=== PATIENT | male | born 1950 | race Caucasian/White ===

== ENCOUNTER 2019-10-05 13:17 | Outpatient (CLI) | payer MEDICARE ==
[~2019-10-05 13:17] MED LIST: COU5T PO; DILT-91 PO; LEVO500T89 PO; METO-292 PO; MORP30TA PO; MORP60TA77 PO; NICO-687 TD; OMEP-84 PO
== END 2019-10-05 23:59 | disposition home or self-care (01) ==
LOC: RAD 13:17
PROVIDERS: ATTEND Obstetrics & Gynecology
DX: R00.1 Bradycardia, unspecified (principal); F11.20 Opioid dependence, uncomplicated
CPT/HCPCS: 93005

== ENCOUNTER 2022-01-23 06:21 | Inpatient (IN) | payer MEDICARE ==
[~2022-01-23] VITALS: Ht 182.9 cm; Wt 60.0 kg
[2022-01-23] VITALS (18 sets, daily range): BP systolic 106–159; BP diastolic 56–106
[~2022-01-23 06:21] MED LIST changes: +ALPR0.255 PO; +AMIO200T61 PO; -COU5T PO; -DILT-91 PO; -LEVO500T89 PO; +METH5TAB PO; -METO-292 PO; -MORP30TA PO; -MORP60TA77 PO; -NICO-687 TD; -OMEP-84 PO; +OMEP20CA16 PO; +TEMA30CA PO; +TRAZ-256 PO; +VENL75CA61 PO; +WARF3TAB56 PO
[2022-01-23] MEDS ORDERED: normal saline 1000ML IV soln IV ONE (06:25)
[2022-01-23] MEDS ORDERED: famotidine/PF 10 mg/ml inj IV ONE (06:25)
[2022-01-23] MEDS ORDERED: pantoprazole 40MG/NS 100ML BAG 100 ML IV ONE ×2 (06:25)
--- NOTE | 2022-01-23 06:29 | NUR ---
NRB REMOVED, PLACED ON 6L NC. XRAY AT BEDSIDE.
--- NOTE | 2022-01-23 06:42 | NUR ---
PT DID NOT TOLERATE NC, DESAT TO 70S. NRB PLACED BACK ON PT AT 15L, MD AT BEDSIDE.
[2022-01-23 07:08] LABS: BASOPHILS % (AUTO) 0.1 % (0-1); EOSINOPHILS % (AUTO) 0 % (0-6); HEMATOCRIT 22.5 % (42.0-52.0); HEMOGLOBIN 7.2 g/dl (14.0-17.9); LYMPHOCYTES # (AUTO) 0.3 X10'3 (1.1-4.8); LYMPHOCYTES % (AUTO) 1.1 % (21-51); MEAN CORPUSCULAR HEMOGLOBIN 28.3 PG (27.0-31.0); MEAN CORPUSCULAR HGB CONC 31.8 g/dL (33.0-36.5); MEAN PLATELET VOLUME 7.7 FL (7.4-10.4); MONOCYTES # (AUTO) 0.4 X10'3 (0-0.9); MONOCYTES % (AUTO) 1.7 % (2-12); NEUTROPHILS # (AUTO) 22.6 X10'3 (1.8-7.7); NEUTROPHILS % (AUTO) 97.1 % (42-75); PLATELET COUNT 91 X10'3 (140-440); RED BLOOD COUNT 2.53 X10'6 (4.70-6.10); RED CELL DISTRIBUTION WIDTH 21.3 % (11.5-14.5); WHITE BLOOD COUNT 23.3 X10'3 (4.5-11.0)
[2022-01-23] MEDS: pantoprazole 40MG/NS 100ML BAG 100 ML IV SCH ×4 (07:17→21:15)
[2022-01-23 07:19] LABS: APTT 29 SECONDS (22-32)
[2022-01-23 07:21] LABS: ALANINE AMINOTRANSFERASE 67 U/L (12-78); ALBUMIN 2.2 G/DL (3.4-5.0); ALBUMIN/GLOBULIN RATIO 0.7 (1.1-1.5); ALKALINE PHOSPHATASE 96 IU/L (46-116); ANION GAP 8 (8-16); ASPARTATE AMINO TRANSFERASE 24 U/L (10-37); BLOOD UREA NITROGEN 46 MG/DL (7-18); BUN/CREATININE RATIO 47.9 (5.4-32.0); CALCIUM 7.7 MG/DL (8.5-10.1); CHLORIDE 104 MMOL/L (99-107); CREATININE 0.96 MG/DL (0.60-1.10); GLUCOSE 248 MG/DL (70-104); POTASSIUM 3.7 MMOL/L (3.5-5.1); SODIUM 143 MMOL/L (135-145); TOTAL CARBON DIOXIDE 30.9 MMOL/L (24-32); TOTAL PROTEIN 5.4 G/DL (6.4-8.2); eGFR 78 ML/MIN
[2022-01-23 07:29] LABS: ANISOCYTOSIS 3+; ELLIPTOCYTES FEW; PLATELET ESTIMATE DECREASED; SCHISTOCYTES FEW
--- NOTE | 2022-01-23 07:30 | NUR ---
dr bills at bedside ,vitals s table ,checked patient bottom by the provider .
[2022-01-23] MEDS ORDERED: phytonadione inj. 10 MG in normal saline 100ml IV soln 100 ML IV ONE (07:35)
[2022-01-23] MEDS ORDERED: CefTRIAXone 2gm/NS 100ml IVPB 100 ML IV ONE (07:35)
[2022-01-23] MEDS ORDERED: vancomycin/NS 1 GM ADD-VANTAGE 250 ML IV ONE (07:35)
[2022-01-23 07:57] LABS: ABG BASE EXCESS 2.5 mmol/L (-2.0-2.0); ABG HCO3 26.3 mmol/L (22.0-26.0); ABG OXYGEN SATURATION 95.1 % (94-97); ABG PCO2 (T) 36.4 mmHg (35.0-48.0); ABG PO2 (T) 83.1 mmHg (75.0-100.0); ALLEN'S TEST POSITIVE; FCOHb 0.8 % (0.0-3.9); FLOW 15 L/min; FMetHb 0.1 % (0.0-1.5); FO2Hb 94.2 % (94-97); TOTAL HEMOGLOBIN 6.8 G/dl (14.0-18.0)
[2022-01-23] MEDS ORDERED: sod chloride 0.9% 10ml flush syringe IV ONE (08:00)
[2022-01-23] MEDS ORDERED: etomidate 2mg/ml inj. ONE (08:00)
[2022-01-23] MEDS ORDERED: sodium bicarbonate (8.4%) 1 mEq/ml syringe ONE (08:00)
[2022-01-23] MEDS ORDERED: rocuronium 10mg/ml inj IV ONE ×2 (08:00→18:50)
[2022-01-23] MEDS ORDERED: linezolid 600mg/300ml PREMIX 300 ML IV ONE (08:05)
[2022-01-23] MEDS ORDERED: potassium CL 10mEq/100ml bag 100 ML IV PRN (08:10)
[2022-01-23] MEDS ORDERED: LIDOcaine 2% 10ml TOPICAL JELLY (Urojet) TP ONE (08:10)
[2022-01-23] MEDS ORDERED: ipratropium/albuterol 3ml nebule NEB PRN (08:10)
[2022-01-23] MEDS ORDERED: sodium phosphate inj. 15 MMOL in dextrose 5%-water 250 ML IV PRN (08:10)
[2022-01-23] MEDS ORDERED: potassium Cl 20 mEq SR tablet PO PRN ×2 (08:10)
[2022-01-23] MEDS ORDERED: sodium phosphate inj. 30 MMOL in dextrose 5%-water 250 ML IV PRN (08:10)
[2022-01-23] MEDS ORDERED: magnesium 2GM in 50ml NS 50 ML IV PRN (08:10)
[2022-01-23] MEDS ORDERED: ondansetron/PF 4mg/2ml inj IV PRN (08:10)
[2022-01-23] MEDS ORDERED: acetaminophen 325mg tablet PO PRN (08:10)
[2022-01-23] MEDS ORDERED: acetaminophen 650mg rectal suppository RC PRN (08:10)
[2022-01-23] MEDS ORDERED: Neutra Phos packet PO PRN (08:10)
[2022-01-23 09:21] LABS: LDL CHOLESTEROL 70 MG/DL (50-100)
--- NOTE | 2022-01-23 09:22 | NUR ---
first unit plt started at 915, witnesed by cecelia keys.
--- NOTE | 2022-01-23 09:39 | NUR ---
pt agreeable to intubation for endoscopy procedure, dr. zamorano at bedside to explain procedure. pt verbalized understanding and agreed.
[2022-01-23] MEDS ORDERED: ALPRAZolam 0.25mg tablet PO ONE (09:40)
[2022-01-23] MEDS ORDERED: WARF-55 PO (11:04)
--- NOTE | 2022-01-23 11:53 | NUR ---
SPOKE TO DR MEDRANO AND INFORMED THE MD THAT PT SPO2 IS DROPPING DOWN TO 89-90 ON 15 L NRB ,TELE ORDER FOR BIPAP WAS PASS ALONG TO RT ,BUT PT REFUSED THE BI PAP.PT IS REQUESTING FOR ATIVIAN FOR ANXITEY , PER DR MEDRANO NEED TO KNOW HE MAY FOR REFUSING THE BIPAP ANS PT IS LIMITED ON CODE STATUS .TEL ORDER FOR ATIVIAN 1 MG IV Q 4 HR PRN .
--- NOTE | 2022-01-23 12:00 | NUR ---
HAVE NOT SEEN THE ORDER FOR NG TUBE I HAD ANOTHER CRITICAL ICU PT ,CHARGE NURSE ROE AND MAGDALENE WERE HELPING ME WITH THE PT .NOTIFIED THE ICU NURSE LUIS ALFREDO BY BRENNEN ZAZUETA.
[2022-01-23] MEDS: LORazepam 2 mg/ml vial IV PRN ×2 (12:16→20:57)
[2022-01-23] MEDS: cefepime 1GM/NS ADD-VANTAGE 100 ML IV SCH ×2 (16:00→23:01)
[2022-01-23] MEDS ORDERED: pantoprazole 40MG/NS 100ML BAG 100 ML IV SCH (16:00)
[2022-01-23 17:05] LABS: BASOPHILS % (AUTO) 0.1 % (0-1); EOSINOPHILS % (AUTO) 0 % (0-6); LYMPHOCYTES # (AUTO) 0.3 X10'3 (1.1-4.8); LYMPHOCYTES % (AUTO) 1.1 % (21-51); MEAN CORPUSCULAR HGB CONC 31.6 g/dL (33.0-36.5); MEAN CORPUSCULAR VOLUME 88.5 FL (78-98); MEAN PLATELET VOLUME 7.6 FL (7.4-10.4); MONOCYTES # (AUTO) 0.7 X10'3 (0-0.9); MONOCYTES % (AUTO) 2.6 % (2-12); NEUTROPHILS # (AUTO) 24.1 X10'3 (1.8-7.7); NEUTROPHILS % (AUTO) 96.2 % (42-75); PLATELET COUNT 66 X10'3 (140-440); RED BLOOD COUNT 2.44 X10'6 (4.70-6.10); RED CELL DISTRIBUTION WIDTH 20.8 % (11.5-14.5)
[2022-01-23 17:16] LABS: HEMATOCRIT 21.6 % (42.0-52.0); HEMOGLOBIN 6.8 g/dl (14.0-17.9); WHITE BLOOD COUNT 25.1 X10'3 (4.5-11.0)
[2022-01-23 17:39] LABS: PLATELET ESTIMATE DECREASED; TOTAL CELLS COUNTED 100
[2022-01-23 17:40] LABS: ANISOCYTOSIS 3+; ELLIPTOCYTES FEW; SCHISTOCYTES FEW
[2022-01-23] MEDS ORDERED: succinylcholine 20mg/ml inj IV ONE (18:37)
[2022-01-23] MEDS ORDERED: NORepinephrine 8mg/ 250ml NS 250 ML IV SCH (18:40)
[2022-01-23] MEDS ORDERED: NORepinephrine 8mg/ 250ml NS 250 ML IV ONE (18:40)
[2022-01-23] MEDS ORDERED: midazolam 1 mg/ML 2ml injection IV ONE (18:42)
[2022-01-23] MEDS ORDERED: MIDAZolam 5mg/ml 2ml vial IV ONE (18:45)
[2022-01-23] MEDS ORDERED: etomidate 2mg/ml inj. IV ONE (18:45)
[2022-01-23] MEDS ORDERED: midazolam 1 mg/ML 2ml injection ONE ×3 (18:46→18:48)
[2022-01-23] MEDS ORDERED: midazolam 100mg in NS 100ml 100 ML IV PRN (19:00)
[2022-01-23 19:30] LABS: ABG BASE EXCESS -1.2 mmol/L (-2.0-2.0); ABG HCO3 25.1 mmol/L (22.0-26.0); ABG OXYGEN SATURATION 91.6 % (94-97); ABG PCO2 (T) 49.3 mmHg (35.0-48.0); ABG PO2 (T) 70.4 mmHg (75.0-100.0); ALLEN'S TEST POSITIVE; FCOHb 0.3 % (0.0-3.9); FMetHb 0.4 % (0.0-1.5); PATIENT TEMPERATURE 36.7; PEEP 5 cm H2O; RESPIRATORY RATE 16 b/min; TIDAL VOLUME 400 mL; TOTAL HEMOGLOBIN 9.8 G/dl (14.0-18.0)
[2022-01-23] MEDS: albuterol 2.5 MG/3 ML nebule NEB SCH ×2 (19:33→23:03)
[2022-01-23] MEDS ORDERED: fentaNYL/PF 50MCG/1 ML 2ML syringe IV PRN (20:30)
[2022-01-23] MEDS ORDERED: propofol 1000mg/100ml bottle 100 ML IV ONE (20:54)
[2022-01-23] MEDS: sennosides/docusate sodium tablet PO SCH (20:59)
[2022-01-23] MEDS: dexmedetomidine/D5W 100mL 100 ML IV PRN ×3 (20:59→23:01)
[2022-01-23] MEDS: linezolid 600mg/300ml PREMIX 300 ML IV SCH (21:00)
[2022-01-23] MEDS: mineral oil/petrolatum ophthal oint EACHEYE SCH (21:01)
[2022-01-23] MEDS: normal saline 1000ml 1,000 ML IV SCH ×2 (21:04→21:16)
[2022-01-23] MEDS: propofol 1000mg/100ml bottle 100 ML IV SCH ×2 (21:10→23:02)
[2022-01-23] MEDS: fentaNYL/PF 50MCG/1 ML 2ML syringe IV PRN (23:05)
[2022-01-24] VITALS (43 sets, daily range): BP systolic 105–132; BP diastolic 46–63
[2022-01-24] MEDS: pantoprazole 40MG/NS 100ML BAG 100 ML IV SCH ×5 (01:00→20:34)
[2022-01-24] MEDS: albuterol 2.5 MG/3 ML nebule NEB SCH ×6 (02:31→23:27)
[2022-01-24 02:45] LABS: ABG BASE EXCESS -2.4 mmol/L (-2.0-2.0); ABG HCO3 21.2 mmol/L (22.0-26.0); ABG OXYGEN SATURATION 93.3 % (94-97); ABG PCO2 (T) 31.6 mmHg (35.0-48.0); ABG PO2 (T) 68.5 mmHg (75.0-100.0); ALLEN'S TEST POSITIVE; FCOHb 0.3 % (0.0-3.9); FMetHb 0.5 % (0.0-1.5); FO2Hb 92.6 % (94-97); PEEP 5 cm H2O; TOTAL HEMOGLOBIN 7.7 G/dl (14.0-18.0)
[2022-01-24 03:21] LABS: BASOPHILS % (AUTO) 0.1 % (0-1); EOSINOPHILS % (AUTO) 0.1 % (0-6); LYMPHOCYTES # (AUTO) 0.5 X10'3 (1.1-4.8); LYMPHOCYTES % (AUTO) 3.6 % (21-51); MEAN CORPUSCULAR HEMOGLOBIN 28.3 PG (27.0-31.0); MEAN CORPUSCULAR HGB CONC 32.3 g/dL (33.0-36.5); MEAN CORPUSCULAR VOLUME 87.5 FL (78-98); MEAN PLATELET VOLUME 8.1 FL (7.4-10.4); MONOCYTES # (AUTO) 0.3 X10'3 (0-0.9); MONOCYTES % (AUTO) 2.3 % (2-12); NEUTROPHILS # (AUTO) 13.6 X10'3 (1.8-7.7); NEUTROPHILS % (AUTO) 93.9 % (42-75); RED BLOOD COUNT 2.47 X10'6 (4.70-6.10); WHITE BLOOD COUNT 14.5 X10'3 (4.5-11.0)
[2022-01-24 03:34] LABS: HEMATOCRIT 21.6 % (42.0-52.0); PLATELET COUNT 39 X10'3 (140-440)
[2022-01-24 03:35] LABS: ALANINE AMINOTRANSFERASE 46 U/L (12-78); ALBUMIN 1.6 G/DL (3.4-5.0); ALBUMIN/GLOBULIN RATIO 0.7 (1.1-1.5); ALKALINE PHOSPHATASE 63 IU/L (46-116); ANION GAP 8 (8-16); ASPARTATE AMINO TRANSFERASE 22 U/L (10-37); BILIRUBIN,TOTAL 0.7 MG/DL (0.1-1.0); BLOOD UREA NITROGEN 43 MG/DL (7-18); CALCIUM 6.8 MG/DL (8.5-10.1); CHLORIDE 110 MMOL/L (99-107); CREATININE 0.86 MG/DL (0.60-1.10); GLUCOSE 139 MG/DL (70-104); PHOSPHORUS 2.7 MG/DL (2.3-4.5); SODIUM 144 MMOL/L (135-145); TOTAL CARBON DIOXIDE 26.1 MMOL/L (24-32); TOTAL PROTEIN 3.8 G/DL (6.4-8.2); eGFR 88 ML/MIN
[2022-01-24] MEDS: fentaNYL/PF 50MCG/1 ML 2ML syringe IV PRN ×3 (03:35→22:10)
[2022-01-24] MEDS: propofol 1000mg/100ml bottle 100 ML IV SCH ×4 (03:39→20:36)
[2022-01-24] MEDS: K and/or MAG REPLACEMENT MC SCH (08:00)
[2022-01-24] MEDS: cefepime 1GM/NS ADD-VANTAGE 100 ML IV SCH ×2 (08:45→15:49)
[2022-01-24] MEDS: linezolid 600mg/300ml PREMIX 300 ML IV SCH ×2 (08:45→20:28)
[2022-01-24] MEDS: dexmedetomidine/D5W 100mL 100 ML IV PRN ×3 (09:23→20:33)
[2022-01-24] MEDS: normal saline 1000ml 1,000 ML IV SCH (10:50)
[2022-01-24 11:13] LABS: BASOPHILS % (AUTO) 0.1 % (0-1); EOSINOPHILS # (AUTO) 0.1 X10'3 (0-0.9); EOSINOPHILS % (AUTO) 0.6 % (0-6); HEMATOCRIT 25.1 % (42.0-52.0); HEMOGLOBIN 8.2 g/dl (14.0-17.9); LYMPHOCYTES # (AUTO) 0.5 X10'3 (1.1-4.8); LYMPHOCYTES % (AUTO) 4.4 % (21-51); MEAN CORPUSCULAR HEMOGLOBIN 28.9 PG (27.0-31.0); MEAN CORPUSCULAR HGB CONC 32.8 g/dL (33.0-36.5); MEAN PLATELET VOLUME 8.3 FL (7.4-10.4); MONOCYTES # (AUTO) 0.2 X10'3 (0-0.9); MONOCYTES % (AUTO) 1.6 % (2-12); NEUTROPHILS # (AUTO) 11.5 X10'3 (1.8-7.7); NEUTROPHILS % (AUTO) 93.3 % (42-75); PLATELET COUNT 51 X10'3 (140-440); RED BLOOD COUNT 2.85 X10'6 (4.70-6.10); RED CELL DISTRIBUTION WIDTH 17.9 % (11.5-14.5); WHITE BLOOD COUNT 12.3 X10'3 (4.5-11.0)
[2022-01-24 11:21] LABS: ALANINE AMINOTRANSFERASE 49 U/L (12-78); ALBUMIN 1.7 G/DL (3.4-5.0); ALBUMIN/GLOBULIN RATIO 0.7 (1.1-1.5); ALKALINE PHOSPHATASE 59 IU/L (46-116); ANION GAP 9 (8-16); ASPARTATE AMINO TRANSFERASE 24 U/L (10-37); BILIRUBIN,TOTAL 0.9 MG/DL (0.1-1.0); BLOOD UREA NITROGEN 38 MG/DL (7-18); BUN/CREATININE RATIO 46.9 (5.4-32.0); CALCIUM 6.7 MG/DL (8.5-10.1); CHLORIDE 111 MMOL/L (99-107); CREATININE 0.81 MG/DL (0.60-1.10); GLUCOSE 119 MG/DL (70-104); POTASSIUM 3.8 MMOL/L (3.5-5.1); SODIUM 145 MMOL/L (135-145); TOTAL CARBON DIOXIDE 25.5 MMOL/L (24-32); eGFR > 90 ML/MIN
--- NOTE | 2022-01-24 16:05 | NUR ---
Malnutrition consult: Pt admitted w/ GI bleed and PNA per EMR. Pt is currently intubated and receiving propofol per RN at 19.8 ml/hr providing 523 kcal/day. Per RN malnutrition screen pt reports losing 14-23 lb and a poor appetite. Pt's current bedscale wt 60kg per RN. Discussed pt wt and diet hx w/ RD at [facility] who states pt's scaled wt was 57kg 01/10/22, 58.5 kg 01/12/22, and 59 kg 01/20/22. Pt is currently NPO, though per RD at [facility] pt was eating roughly 50% Regular mechanical soft chopped meals and drinking the majority of Ensure Enlive TIDWM. Pt has no edema per documentation, though per RN pt has edema to both arms along with severe muscle weakness. Pt lacks minimum two malnutrition criteria at this time. Noted pt is currently on Zyvox, though will not provide education until pt is appropriate following extubation. LBM 01/23, w/ bloody stool and receiving routine Senna per RN at [facility]. Will continue to follow for nutrition intervention needs this admit. Recs: 1. IF TF while propofol at 19.8 ml/hr (523 kcal/day), continuous Vital HP via NGT with 53 mL/hr goal rate to provide 1272 mL total volume/day, 1272 kcal, 111 g protein, and 1063 mL water 2. Monitor Propofol rate and need to adjust TF recs 3. IF TF, additional 120 mL water flush Q4H; monitor serum Na 4. IF TF, prealbumin q Thursday/; daily scaled weights 5. Routine bowel care 6. Advance to Regular mechanical soft, chop all diet as medically indicated following extubation; needs assistance w/ meals per last admit 7. Monitor need for ONS w/ diet advancement; previously receiving Ensure Enlive TID at [facility] Addendum: 01/24/22 at 1605 by Selena Bazzi - Motorcycle Repairer RD Amended: Links added. Addendum: 01/24/22 at [address] I have reviewed and agree with note by Motorcycle RepairerJulissa Nelson RD
[2022-01-24] MEDS ORDERED: fentaNYL/PF 50MCG/1 ML 2ML syringe ONE (16:10)
[2022-01-24] MEDS ORDERED: MIDAZolam 1 MG/ML 5ML VIAL ONE (16:10)
[2022-01-24] MEDS: sennosides/docusate sodium tablet PO SCH (20:36)
[2022-01-25] VITALS (29 sets, daily range): BP systolic 85–132; BP diastolic 45–98
[2022-01-25] MEDS: dexmedetomidine/D5W 100mL 100 ML IV PRN ×6 (00:11→23:03)
[2022-01-25] MEDS: cefepime 1GM/NS ADD-VANTAGE 100 ML IV SCH ×3 (00:12→16:30)
[2022-01-25] MEDS: pantoprazole 40MG/NS 100ML BAG 100 ML IV SCH ×5 (00:12→14:42)
[2022-01-25] MEDS: propofol 1000mg/100ml bottle 100 ML IV SCH ×6 (00:12→23:03)
[2022-01-25] MEDS: normal saline 1000ml 1,000 ML IV SCH ×2 (00:24→07:59)
[2022-01-25] MEDS: mineral oil/petrolatum ophthal oint EACHEYE SCH ×4 (02:00→19:45)
[2022-01-25 02:27] LABS: BASOPHILS % (AUTO) 0 % (0-1); EOSINOPHILS # (AUTO) 0.2 X10'3 (0-0.9); EOSINOPHILS % (AUTO) 1.6 % (0-6); HEMATOCRIT 26.2 % (42.0-52.0); HEMOGLOBIN 8.6 g/dl (14.0-17.9); LYMPHOCYTES # (AUTO) 0.5 X10'3 (1.1-4.8); LYMPHOCYTES % (AUTO) 4.3 % (21-51); MEAN CORPUSCULAR HEMOGLOBIN 28.9 PG (27.0-31.0); MEAN CORPUSCULAR HGB CONC 32.6 g/dL (33.0-36.5); MEAN CORPUSCULAR VOLUME 88.6 FL (78-98); MEAN PLATELET VOLUME 7.9 FL (7.4-10.4); MONOCYTES # (AUTO) 0.2 X10'3 (0-0.9); MONOCYTES % (AUTO) 1.5 % (2-12); NEUTROPHILS # (AUTO) 11.3 X10'3 (1.8-7.7); NEUTROPHILS % (AUTO) 92.6 % (42-75); RED BLOOD COUNT 2.96 X10'6 (4.70-6.10); RED CELL DISTRIBUTION WIDTH 18.2 % (11.5-14.5); WHITE BLOOD COUNT 12.2 X10'3 (4.5-11.0)
[2022-01-25 02:33] LABS: PLATELET COUNT 40 X10'3 (140-440)
[2022-01-25 02:40] LABS: ALANINE AMINOTRANSFERASE 44 U/L (12-78); ALBUMIN 1.6 G/DL (3.4-5.0); ALBUMIN/GLOBULIN RATIO 0.7 (1.1-1.5); ALKALINE PHOSPHATASE 60 IU/L (46-116); ANION GAP 8 (8-16); ASPARTATE AMINO TRANSFERASE 23 U/L (10-37); BILIRUBIN,TOTAL 1.4 MG/DL (0.1-1.0); BLOOD UREA NITROGEN 28 MG/DL (7-18); BUN/CREATININE RATIO 38.9 (5.4-32.0); CALCIUM 6.7 MG/DL (8.5-10.1); CHLORIDE 110 MMOL/L (99-107); CREATININE 0.72 MG/DL (0.60-1.10); GLUCOSE 89 MG/DL (70-104); MAGNESIUM 1.8 MG/DL (1.5-2.4); PHOSPHORUS 2.4 MG/DL (2.3-4.5); POTASSIUM 3.5 MMOL/L (3.5-5.1); SODIUM 142 MMOL/L (135-145); TOTAL CARBON DIOXIDE 24.5 MMOL/L (24-32); eGFR > 90 ML/MIN
[2022-01-25] MEDS: albuterol 2.5 MG/3 ML nebule NEB SCH ×6 (03:15→23:24)
[2022-01-25 04:23] LABS: ABG BASE EXCESS -4.2 mmol/L (-2.0-2.0); ABG HCO3 19.6 mmol/L (22.0-26.0); ABG OXYGEN SATURATION 94.4 % (94-97); ABG PCO2 (T) 31.4 mmHg (35.0-48.0); ABG PO2 (T) 74.1 mmHg (75.0-100.0); ALLEN'S TEST POSITIVE; FMetHb 0.3 % (0.0-1.5); FO2Hb 94.1 % (94-97); PATIENT TEMPERATURE 37.2; PEEP 5 cm H2O; RESPIRATORY RATE 16 b/min; TOTAL HEMOGLOBIN 9.5 G/dl (14.0-18.0)
[2022-01-25] MEDS: fentaNYL/PF 50MCG/1 ML 2ML syringe IV PRN (04:30)
[2022-01-25] MEDS ORDERED: dextrose 50%-water 50ml dispensing syringe IV ONE ×2 (07:55→08:10)
[2022-01-25] MEDS: K and/or MAG REPLACEMENT MC SCH (08:00)
[2022-01-25] MEDS ORDERED: bisacodyl 10mg suppository rectal RC PRN (08:10)
[2022-01-25] MEDS: linezolid 600mg/300ml PREMIX 300 ML IV SCH ×2 (08:12→19:43)
--- NOTE | 2022-01-25 10:41 | NUR ---
TF consult: Pt remains intubated. See TF recommendations below. Recommendations: 1. Given propofol at 19.8 mL/hr (523 kcal/day), continuous Vital HP via NGT with 53 mL/hr goal rate to provide 1272 mL total volume/day, 1272 kcal, 111 g protein, and 1063 mL water 2. Monitor Propofol rate and need to adjust TF recs 3. Additional 120 mL water flush Q4H; monitor serum Na 4. Prealbumin q Thursday/ 5. Daily scaled weights 6. Bowel care per rx 7. Advance to regular mechanical soft chop all diet (SB6) as medically indicated following extubation; needs assistance w/ meals per last admit 8. Monitor need for ONS with diet advancement; previously receiving Ensure Enlive TID at [facility] with good acceptance per [facility] [facility] 9. Low tyramine nutrition therapy education once stable following extubation if indicated Addendum: 01/25/22 at [address] Amended: Links added.
[2022-01-25] MEDS: morphine/NS 100mg/100ml bag 100 ML IV SCH ×2 (11:00→16:53)
[2022-01-25] MEDS ORDERED: calcium chloride 100 MG/1 ML inj IV ONE (11:40)
[2022-01-25] MEDS ORDERED: furosemide 40mg/4ml inj IV ONE (14:20)
[2022-01-25] MEDS ORDERED: amiodarone 150mg/dext, iso-os 100 ML IV ONE ×2 (16:37→17:00)
[2022-01-25] MEDS ORDERED: LORazepam 2 mg/ml vial IV ONE (16:40)
[2022-01-25] MEDS ORDERED: amiodarone 50MG/ML inj IV ONE (16:40)
[2022-01-25] MEDS: amiodarone/D5 360MG/200ML BAG 200 ML IV SCH ×2 (17:11→23:02)
[2022-01-25] MEDS ORDERED: ALPRAZolam 0.25mg tablet PO PRN (18:00)
[2022-01-25] MEDS ORDERED: NORepinephrine inj. 8 MG in dextrose 5%-water 242 ML IV SCH (18:35)
[2022-01-25] MEDS ORDERED: NORepinephrine inj. 8 MG in normal saline 250ml IV soln 242 ML IV SCH (18:48)
[2022-01-25] MEDS: venlafaxine XR 75mg capsule (Q24H) PO SCH (19:43)
[2022-01-25] MEDS: sennosides/docusate sodium tablet PO SCH (19:43)
[2022-01-25] MEDS: NORepinephrine 8mg/ 250ml NS 250 ML IV SCH (19:45)
[2022-01-25] MEDS: acetaminophen 325mg tablet PO PRN (19:52)
[2022-01-25] MEDS ORDERED: temazepam 15mg capsule PO SCH (21:00)
[2022-01-25] MEDS ORDERED: traZODone 50mg tablet PO SCH (21:00)
[2022-01-26] VITALS (31 sets, daily range): BP systolic 92–161; BP diastolic 45–75
[2022-01-26] MEDS: cefepime 1GM/NS ADD-VANTAGE 100 ML IV SCH ×3 (00:12→15:37)
[2022-01-26] MEDS: pantoprazole 40MG/NS 100ML BAG 100 ML IV SCH ×5 (00:12→20:44)
[2022-01-26] MEDS: mineral oil/petrolatum ophthal oint EACHEYE SCH ×4 (02:00→20:44)
[2022-01-26 03:04] LABS: BASOPHILS % (AUTO) 0.1 % (0-1); EOSINOPHILS # (AUTO) 0.3 X10'3 (0-0.9); EOSINOPHILS % (AUTO) 2.4 % (0-6); HEMATOCRIT 26.4 % (42.0-52.0); HEMOGLOBIN 8.7 g/dl (14.0-17.9); LYMPHOCYTES # (AUTO) 0.5 X10'3 (1.1-4.8); LYMPHOCYTES % (AUTO) 3.8 % (21-51); MEAN CORPUSCULAR HEMOGLOBIN 29.1 PG (27.0-31.0); MEAN CORPUSCULAR HGB CONC 32.9 g/dL (33.0-36.5); MEAN CORPUSCULAR VOLUME 88.5 FL (78-98); MEAN PLATELET VOLUME 8.8 FL (7.4-10.4); MONOCYTES # (AUTO) 0.2 X10'3 (0-0.9); MONOCYTES % (AUTO) 1.5 % (2-12); NEUTROPHILS # (AUTO) 12.7 X10'3 (1.8-7.7); NEUTROPHILS % (AUTO) 92.2 % (42-75); RED BLOOD COUNT 2.99 X10'6 (4.70-6.10); RED CELL DISTRIBUTION WIDTH 18.1 % (11.5-14.5); WHITE BLOOD COUNT 13.8 X10'3 (4.5-11.0)
[2022-01-26 03:12] LABS: ALANINE AMINOTRANSFERASE 38 U/L (12-78); ALBUMIN 1.6 G/DL (3.4-5.0); ALBUMIN/GLOBULIN RATIO 0.6 (1.1-1.5); ALKALINE PHOSPHATASE 63 IU/L (46-116); ANION GAP 9 (8-16); ASPARTATE AMINO TRANSFERASE 18 U/L (10-37); BILIRUBIN,TOTAL 1.7 MG/DL (0.1-1.0); BLOOD UREA NITROGEN 21 MG/DL (7-18); BUN/CREATININE RATIO 26.9 (5.4-32.0); CHLORIDE 109 MMOL/L (99-107); CREATININE 0.78 MG/DL (0.60-1.10); GLUCOSE 163 MG/DL (70-104); MAGNESIUM 1.7 MG/DL (1.5-2.4); PHOSPHORUS 2.7 MG/DL (2.3-4.5); SODIUM 144 MMOL/L (135-145); TOTAL CARBON DIOXIDE 25.7 MMOL/L (24-32); TOTAL PROTEIN 4.2 G/DL (6.4-8.2); eGFR > 90 ML/MIN
[2022-01-26] MEDS: albuterol 2.5 MG/3 ML nebule NEB SCH ×6 (03:15→23:04)
[2022-01-26 03:16] LABS: PLATELET COUNT 41 X10'3 (140-440)
[2022-01-26] MEDS: normal saline 1000ml 1,000 ML IV SCH (03:17)
[2022-01-26 03:22] LABS: POTASSIUM 2.9 MMOL/L (3.5-5.1)
[2022-01-26] MEDS ORDERED: potassium Cl 20mEq/100mL bag 100 ML IV PRN (03:45)
[2022-01-26 04:19] LABS: ABG BASE EXCESS -0.2 mmol/L (-2.0-2.0); ABG HCO3 24.6 mmol/L (22.0-26.0); ABG OXYGEN SATURATION 92.9 % (94-97); ABG PCO2 (T) 41.3 mmHg (35.0-48.0); ABG PO2 (T) 67.9 mmHg (75.0-100.0); ALLEN'S TEST POSITIVE; FCOHb 0.1 % (0.0-3.9); FMetHb 0.3 % (0.0-1.5); FO2Hb 92.5 % (94-97); PATIENT TEMPERATURE 37.2; PEEP 5 cm H2O; RESPIRATORY RATE 16 b/min; TIDAL VOLUME 500 mL; TOTAL HEMOGLOBIN 9.8 G/dl (14.0-18.0)
[2022-01-26] MEDS: morphine/NS 100mg/100ml bag 100 ML IV SCH (04:45)
[2022-01-26] MEDS: amiodarone/D5 360MG/200ML BAG 200 ML IV SCH ×4 (05:30→23:51)
[2022-01-26] MEDS: K and/or MAG REPLACEMENT MC SCH (08:00)
[2022-01-26] MEDS: dexmedetomidine/D5W 100mL 100 ML IV PRN ×5 (08:56→21:48)
[2022-01-26] MEDS: linezolid 600mg/300ml PREMIX 300 ML IV SCH ×2 (09:00→20:40)
[2022-01-26] MEDS: venlafaxine XR 75mg capsule (Q24H) PO SCH ×2 (09:00→20:42)
[2022-01-26] MEDS: acetaminophen 325mg tablet PO PRN (12:07)
[2022-01-26 13:30] LABS: ALANINE AMINOTRANSFERASE 40 U/L (12-78); ALBUMIN 1.6 G/DL (3.4-5.0); ALBUMIN/GLOBULIN RATIO 0.6 (1.1-1.5); ALKALINE PHOSPHATASE 88 IU/L (46-116); ANION GAP 3 (8-16); ASPARTATE AMINO TRANSFERASE 25 U/L (10-37); BILIRUBIN,TOTAL 1.5 MG/DL (0.1-1.0); BLOOD UREA NITROGEN 22 MG/DL (7-18); BUN/CREATININE RATIO 33.8 (5.4-32.0); CALCIUM 6.4 MG/DL (8.5-10.1); CHLORIDE 111 MMOL/L (99-107); CREATININE 0.65 MG/DL (0.60-1.10); GLUCOSE 243 MG/DL (70-104); MAGNESIUM 1.6 MG/DL (1.5-2.4); PHOSPHORUS 2.1 MG/DL (2.3-4.5); SODIUM 140 MMOL/L (135-145); TOTAL CARBON DIOXIDE 25.7 MMOL/L (24-32); TOTAL PROTEIN 4.2 G/DL (6.4-8.2); eGFR > 90 ML/MIN
[2022-01-26] MEDS: NORepinephrine 8mg/ 250ml NS 250 ML IV SCH (15:03)
[2022-01-26] MEDS: propofol 1000mg/100ml bottle 100 ML IV SCH ×3 (15:38→21:49)
[2022-01-26] MEDS ORDERED: ALPRAZolam 0.25mg tablet NG PRN (16:11)
[2022-01-26] MEDS ORDERED: POTASSIUM CHLORIDE 20 MEQ/15 ML oral solution NG PRN ×2 (16:12)
[2022-01-26] MEDS ORDERED: traZODone 50mg tablet NG SCH (16:14)
[2022-01-26] MEDS ORDERED: Neutra Phos packet NG PRN (16:14)
[2022-01-26] MEDS ORDERED: temazepam 15mg capsule NG SCH (16:14)
[2022-01-26] MEDS ORDERED: ondansetron 4mg/5ml UD cup NG PRN (16:15)
[2022-01-26] MEDS: acetaminophen 325mg/10.15ml oral unit dose solution NG PRN ×2 (16:42→20:43)
[2022-01-26] MEDS: sennosides/docusate sodium tablet NG SCH (20:41)
[2022-01-27] VITALS (32 sets, daily range): BP systolic 62–136; BP diastolic 40–73
[2022-01-27] MEDS: cefepime 1GM/NS ADD-VANTAGE 100 ML IV SCH ×4 (00:31→23:23)
[2022-01-27] MEDS: propofol 1000mg/100ml bottle 100 ML IV SCH ×5 (00:33→22:34)
[2022-01-27] MEDS: dexmedetomidine/D5W 100mL 100 ML IV PRN ×6 (00:33→22:35)
[2022-01-27] MEDS: pantoprazole 40MG/NS 100ML BAG 100 ML IV SCH ×3 (01:00→20:35)
[2022-01-27 01:45] LABS: ABG BASE EXCESS -4.5 mmol/L (-2.0-2.0); ABG HCO3 22.6 mmol/L (22.0-26.0); ABG OXYGEN SATURATION 92.2 % (94-97); ABG PCO2 (T) 51.5 mmHg (35.0-48.0); ABG PO2 (T) 67.2 mmHg (75.0-100.0); ALLEN'S TEST POSITIVE; FCOHb 0.5 % (0.0-3.9); FMetHb 0.3 % (0.0-1.5); FO2Hb 91.5 % (94-97); PATIENT TEMPERATURE 37.5; PEEP 5 cm H2O; RESPIRATORY RATE 23 b/min; TIDAL VOLUME 500 mL; TOTAL HEMOGLOBIN 10.7 G/dl (14.0-18.0)
[2022-01-27] MEDS: mineral oil/petrolatum ophthal oint EACHEYE SCH ×4 (02:00→20:32)
[2022-01-27] MEDS: albuterol 2.5 MG/3 ML nebule NEB SCH ×6 (03:21→23:05)
[2022-01-27 03:30] LABS: BASOPHILS % (AUTO) 0.2 % (0-1); EOSINOPHILS # (AUTO) 0.2 X10'3 (0-0.9); EOSINOPHILS % (AUTO) 1.7 % (0-6); HEMATOCRIT 29.8 % (42.0-52.0); HEMOGLOBIN 9.6 g/dl (14.0-17.9); LYMPHOCYTES # (AUTO) 0.6 X10'3 (1.1-4.8); LYMPHOCYTES % (AUTO) 4.9 % (21-51); MEAN CORPUSCULAR HEMOGLOBIN 28.8 PG (27.0-31.0); MEAN CORPUSCULAR HGB CONC 32.2 g/dL (33.0-36.5); MEAN CORPUSCULAR VOLUME 89.3 FL (78-98); MEAN PLATELET VOLUME 9.3 FL (7.4-10.4); MONOCYTES # (AUTO) 0.2 X10'3 (0-0.9); MONOCYTES % (AUTO) 1.6 % (2-12); NEUTROPHILS # (AUTO) 11.6 X10'3 (1.8-7.7); NEUTROPHILS % (AUTO) 91.6 % (42-75); RED BLOOD COUNT 3.33 X10'6 (4.70-6.10); RED CELL DISTRIBUTION WIDTH 17.8 % (11.5-14.5); WHITE BLOOD COUNT 12.7 X10'3 (4.5-11.0)
[2022-01-27 03:35] LABS: PLATELET COUNT 32 X10'3 (140-440)
[2022-01-27] MEDS: morphine/NS 100mg/100ml bag 100 ML IV SCH ×2 (03:48→17:17)
[2022-01-27 03:59] LABS: ALANINE AMINOTRANSFERASE 35 U/L (12-78); ALBUMIN 1.6 G/DL (3.4-5.0); ALBUMIN/GLOBULIN RATIO 0.5 (1.1-1.5); ALKALINE PHOSPHATASE 86 IU/L (46-116); ANION GAP 9 (8-16); ASPARTATE AMINO TRANSFERASE 19 U/L (10-37); BILIRUBIN,TOTAL 1.2 MG/DL (0.1-1.0); BLOOD UREA NITROGEN 22 MG/DL (7-18); BUN/CREATININE RATIO 31.4 (5.4-32.0); CALCIUM 7.2 MG/DL (8.5-10.1); CHLORIDE 109 MMOL/L (99-107); GLUCOSE 183 MG/DL (70-104); PHOSPHORUS 2.3 MG/DL (2.3-4.5); POTASSIUM 3.6 MMOL/L (3.5-5.1); PREALBUMIN 13.1 MG/DL (19-36); SODIUM 142 MMOL/L (135-145); TOTAL CARBON DIOXIDE 24.5 MMOL/L (24-32); TOTAL PROTEIN 4.7 G/DL (6.4-8.2); eGFR > 90 ML/MIN
[2022-01-27 04:11] LABS: MAGNESIUM 1.7 MG/DL (1.5-2.4)
[2022-01-27] MEDS: acetaminophen 325mg/10.15ml oral unit dose solution NG PRN ×3 (04:27→23:18)
[2022-01-27] MEDS: amiodarone/D5 360MG/200ML BAG 200 ML IV SCH (05:04)
--- NOTE | 2022-01-27 06:30 | NUR ---
Received report from MARBIN Atkinson
[2022-01-27] MEDS: venlafaxine XR 75mg capsule (Q24H) PO SCH ×2 (08:39→20:35)
[2022-01-27] MEDS ORDERED: METH-603 PO (11:51)
[2022-01-27] MEDS: methadone 10mg tablet PO SCH ×2 (12:30→17:41)
--- NOTE | 2022-01-27 13:17 | NUR ---
F/u 01/27: Pt IV linezolid has been stopped per EMR; no longer in need for low-tyramine education following extubation. Addendum: 01/27/22 at [address] Amended: Links added.
[2022-01-27] MEDS: amiodarone 200mg tablet PO SCH ×2 (14:46→20:35)
--- NOTE | 2022-01-27 18:32 | NUR ---
Report given to MARBIN Atkinson
[2022-01-27] MEDS: sennosides/docusate sodium tablet NG SCH (20:35)
[2022-01-28] VITALS (34 sets, daily range): BP systolic 85–121; BP diastolic 44–70
[2022-01-28 02:39] LABS: BASOPHILS % (AUTO) 0.4 % (0-1); EOSINOPHILS # (AUTO) 0.2 X10'3 (0-0.9); EOSINOPHILS % (AUTO) 2.5 % (0-6); HEMOGLOBIN 8.9 g/dl (14.0-17.9); LYMPHOCYTES # (AUTO) 0.8 X10'3 (1.1-4.8); LYMPHOCYTES % (AUTO) 10.5 % (21-51); MEAN CORPUSCULAR HEMOGLOBIN 29.4 PG (27.0-31.0); MEAN PLATELET VOLUME 9.4 FL (7.4-10.4); MONOCYTES # (AUTO) 0.2 X10'3 (0-0.9); MONOCYTES % (AUTO) 2.8 % (2-12); NEUTROPHILS # (AUTO) 6.2 X10'3 (1.8-7.7); NEUTROPHILS % (AUTO) 83.8 % (42-75); RED BLOOD COUNT 3.04 X10'6 (4.70-6.10); RED CELL DISTRIBUTION WIDTH 19.1 % (11.5-14.5); WHITE BLOOD COUNT 7.4 X10'3 (4.5-11.0)
[2022-01-28] MEDS: mineral oil/petrolatum ophthal oint EACHEYE SCH ×4 (02:42→19:51)
[2022-01-28 02:50] LABS: PLATELET COUNT 26 X10'3 (140-440)
[2022-01-28 02:56] LABS: ALANINE AMINOTRANSFERASE 32 U/L (12-78); ALBUMIN 1.3 G/DL (3.4-5.0); ALBUMIN/GLOBULIN RATIO 0.4 (1.1-1.5); ALKALINE PHOSPHATASE 90 IU/L (46-116); ANION GAP 10 (8-16); ASPARTATE AMINO TRANSFERASE 19 U/L (10-37); BILIRUBIN,TOTAL 0.9 MG/DL (0.1-1.0); BLOOD UREA NITROGEN 32 MG/DL (7-18); BUN/CREATININE RATIO 36.8 (5.4-32.0); CALCIUM 7.3 MG/DL (8.5-10.1); CHLORIDE 108 MMOL/L (99-107); CREATININE 0.87 MG/DL (0.60-1.10); GLUCOSE 155 MG/DL (70-104); MAGNESIUM 1.8 MG/DL (1.5-2.4); PHOSPHORUS 3.3 MG/DL (2.3-4.5); POTASSIUM 3.7 MMOL/L (3.5-5.1); SODIUM 139 MMOL/L (135-145); TOTAL CARBON DIOXIDE 21.1 MMOL/L (24-32); TOTAL PROTEIN 4.6 G/DL (6.4-8.2); eGFR 87 ML/MIN
[2022-01-28] MEDS: albuterol 2.5 MG/3 ML nebule NEB SCH ×6 (03:05→23:15)
[2022-01-28 03:25] LABS: ABG HCO3 20.1 mmol/L (22.0-26.0); ABG OXYGEN SATURATION 92.8 % (94-97); ABG PCO2 (T) 49.2 mmHg (35.0-48.0); ABG PO2 (T) 71.9 mmHg (75.0-100.0); ALLEN'S TEST POSITIVE; FCOHb 0.5 % (0.0-3.9); FMetHb 0.1 % (0.0-1.5); FO2Hb 92.2 % (94-97); PATIENT TEMPERATURE 37.6; PEEP 5 cm H2O; RESPIRATORY RATE 20 b/min; TIDAL VOLUME 500 mL; TOTAL HEMOGLOBIN 9.9 G/dl (14.0-18.0)
[2022-01-28 04:37] LABS: PLATELET ESTIMATE DECREASED
[2022-01-28 04:38] LABS: ANISOCYTOSIS 2+
[2022-01-28 04:42] LABS: POLYCHROMASIA FEW
[2022-01-28] MEDS: NORepinephrine 8mg/ 250ml NS 250 ML IV PRN ×2 (05:36→18:41)
--- NOTE | 2022-01-28 06:30 | NUR ---
Patient in room CICU 2014. I have received report from MARBIN Atkinson and had the opportunity to ask questions and assume patient care.
[2022-01-28] MEDS ORDERED: acetaminophen 325mg/10.15ml oral unit dose solution OGT PRN (07:24)
[2022-01-28] MEDS ORDERED: ALPRAZolam 0.25mg tablet OGT PRN (07:24)
[2022-01-28] MEDS ORDERED: Neutra Phos packet OGT PRN (07:25)
[2022-01-28] MEDS ORDERED: ondansetron 4mg/5ml UD cup OGT PRN (07:25)
[2022-01-28] MEDS ORDERED: POTASSIUM CHLORIDE 20 MEQ/15 ML oral solution OGT PRN ×2 (07:26)
[2022-01-28] MEDS: methadone 10mg tablet OGT SCH (08:08)
[2022-01-28] MEDS: cefepime 1GM/NS ADD-VANTAGE 100 ML IV SCH (08:09)
[2022-01-28] MEDS: amiodarone 200mg tablet OGT SCH ×2 (08:09→19:51)
[2022-01-28] MEDS: venlafaxine 37.5mg tablet OGT SCH ×2 (08:09→19:51)
[2022-01-28] MEDS: pantoprazole 40MG/NS 100ML BAG 100 ML IV SCH ×2 (08:09→19:51)
[2022-01-28] MEDS: dexmedetomidine/D5W 100mL 100 ML IV PRN ×3 (11:10→18:39)
[2022-01-28] MEDS: propofol 1000mg/100ml bottle 100 ML IV SCH ×3 (11:11→19:50)
--- NOTE | 2022-01-28 12:06 | NUR ---
Reassessment: Pt remains intubated and tolerating TF at goal rate with GRV WNL. Propofol visualized at bedside to be held however likely to resume pending bronch per MD at critical care rounds. Will hold off on adjusting TF recommendations at this time. LBM 01/27 per RN. Pt continues receiving routine bowel care. Will continue to follow closely and make recommendations as appropriate. Recommendations: 1. Given propofol at 19.8 mL/hr (523 kcal/day), continuous Vital HP via NGT with 53 mL/hr goal rate to provide 1272 mL total volume/day, 1272 kcal, 111 g protein, and 1063 mL water 2. Monitor Propofol rate and need to adjust TF recs 3. Additional 120 mL water flush Q4H; monitor serum Na 4. Prealbumin q Thursday/ 5. Daily scaled weights 6. Bowel care per rx 7. Advance to regular mechanical soft chop all diet (SB6) as medically indicated following extubation; needs assistance w/ meals per last admit 8. Monitor need for ONS with diet advancement; previously receiving Ensure Enlive TID at [facility] with good acceptance per [facility] RD Addendum: 01/28/22 at [address] Amended: Links added.
[2022-01-28] MEDS ORDERED: midazolam 1 mg/ML 2ml injection ONE (13:58)
[2022-01-28] MEDS ORDERED: midazolam 1 mg/ML 2ml injection IV ONE ×2 (14:00→14:15)
[2022-01-28] MEDS: acetaminophen 325mg/10.15ml oral unit dose solution OGT PRN (14:15)
--- NOTE | 2022-01-28 16:00 | NUR ---
Patients Eladia called us to inform us that the patient has leukemia, upon looking at older visits it is reported that leukemia was diagnosed 3 to 4 years ago and is noted as a past history of.
--- NOTE | 2022-01-28 17:41 | NUR ---
I have reviewed and agree with all medications administered and interventions performed by Neela RN orienting to the floor
[2022-01-28] MEDS: morphine/NS 100mg/100ml bag 100 ML IV SCH (18:15)
--- NOTE | 2022-01-28 18:19 | NUR ---
Problems reprioritized. Patient report given, questions answered & plan of care reviewed with Ellen Zavaleta.
--- NOTE | 2022-01-28 18:20 | NUR ---
Problems reprioritized. Patient report given, questions answered & plan of care reviewed with MARBIN Atkinson.
[2022-01-28] MEDS: sennosides/docusate sodium tablet OGT SCH (19:51)
[2022-01-29] VITALS (29 sets, daily range): BP systolic 81–148; BP diastolic 49–82
[2022-01-29] MEDS: mineral oil/petrolatum ophthal oint EACHEYE SCH ×4 (02:21→19:59)
[2022-01-29] MEDS: albuterol 2.5 MG/3 ML nebule NEB SCH ×6 (03:09→23:10)
[2022-01-29 03:21] LABS: ALANINE AMINOTRANSFERASE 25 U/L (12-78); ALBUMIN 1.2 G/DL (3.4-5.0); ALBUMIN/GLOBULIN RATIO 0.4 (1.1-1.5); ALKALINE PHOSPHATASE 82 IU/L (46-116); ANION GAP 12 (8-16); ASPARTATE AMINO TRANSFERASE 25 U/L (10-37); BILIRUBIN,TOTAL 0.9 MG/DL (0.1-1.0); BLOOD UREA NITROGEN 50 MG/DL (7-18); BUN/CREATININE RATIO 39.4 (5.4-32.0); CALCIUM 7.3 MG/DL (8.5-10.1); CHLORIDE 106 MMOL/L (99-107); CREATININE 1.27 MG/DL (0.60-1.10); GLUCOSE 111 MG/DL (70-104); MAGNESIUM 1.8 MG/DL (1.5-2.4); PHOSPHORUS 4.4 MG/DL (2.3-4.5); POTASSIUM 3.8 MMOL/L (3.5-5.1); SODIUM 137 MMOL/L (135-145); TOTAL CARBON DIOXIDE 19.1 MMOL/L (24-32); TOTAL PROTEIN 4.4 G/DL (6.4-8.2); eGFR 56 ML/MIN
[2022-01-29 03:21] LABS: ABG BASE EXCESS -8.6 mmol/L (-2.0-2.0); ABG HCO3 18.1 mmol/L (22.0-26.0); ABG OXYGEN SATURATION 96.3 % (94-97); ABG PO2 (T) 88.7 mmHg (75.0-100.0); ALLEN'S TEST POSITIVE; FCOHb 0.5 % (0.0-3.9); FMetHb 0.2 % (0.0-1.5); FO2Hb 95.6 % (94-97); PATIENT TEMPERATURE 36.8; PEEP 5 cm H2O; RESPIRATORY RATE 20 b/min; TIDAL VOLUME 500 mL; TOTAL HEMOGLOBIN 8.8 G/dl (14.0-18.0)
[2022-01-29 04:17] LABS: ALANINE AMINOTRANSFERASE 25 U/L (12-78); ALBUMIN 1.2 G/DL (3.4-5.0); ALBUMIN/GLOBULIN RATIO 0.4 (1.1-1.5); ALKALINE PHOSPHATASE 83 IU/L (46-116); ANION GAP 12 (8-16); ASPARTATE AMINO TRANSFERASE 19 U/L (10-37); BILIRUBIN,TOTAL 0.8 MG/DL (0.1-1.0); BLOOD UREA NITROGEN 50 MG/DL (7-18); BUN/CREATININE RATIO 37.9 (5.4-32.0); CALCIUM 7.4 MG/DL (8.5-10.1); CHLORIDE 106 MMOL/L (99-107); CREATININE 1.32 MG/DL (0.60-1.10); GLUCOSE 116 MG/DL (70-104); MAGNESIUM 1.7 MG/DL (1.5-2.4); PHOSPHORUS 4.4 MG/DL (2.3-4.5); POTASSIUM 3.8 MMOL/L (3.5-5.1); SODIUM 138 MMOL/L (135-145); TOTAL CARBON DIOXIDE 20.3 MMOL/L (24-32); TOTAL PROTEIN 4.4 G/DL (6.4-8.2); eGFR 54 ML/MIN
[2022-01-29] MEDS: propofol 1000mg/100ml bottle 100 ML IV SCH ×3 (05:03→21:24)
[2022-01-29 06:12] LABS: HEMOGLOBIN 7.8 g/dl (14.0-17.9); RED BLOOD COUNT 2.65 X10'6 (4.70-6.10); WHITE BLOOD COUNT 1.4 X10'3 (4.5-11.0)
[2022-01-29 06:14] LABS: BASOPHILS % (AUTO) 1.2 % (0-1); EOSINOPHILS # (AUTO) 0.1 X10'3 (0-0.9); EOSINOPHILS % (AUTO) 6.6 % (0-6); HEMATOCRIT 24.4 % (42.0-52.0); LYMPHOCYTES # (AUTO) 0.5 X10'3 (1.1-4.8); LYMPHOCYTES % (AUTO) 34.8 % (21-51); MEAN CORPUSCULAR HEMOGLOBIN 29.3 PG (27.0-31.0); MEAN CORPUSCULAR HGB CONC 31.9 g/dL (33.0-36.5); MEAN CORPUSCULAR VOLUME 91.9 FL (78-98); MEAN PLATELET VOLUME 9.2 FL (7.4-10.4); MONOCYTES # (AUTO) 0.1 X10'3 (0-0.9); MONOCYTES % (AUTO) 10.3 % (2-12); NEUTROPHILS # (AUTO) 0.7 X10'3 (1.8-7.7); NEUTROPHILS % (AUTO) 47.1 % (42-75); RED CELL DISTRIBUTION WIDTH 18.8 % (11.5-14.5)
[2022-01-29 06:21] LABS: PLATELET COUNT 18 X10'3 (140-440)
--- NOTE | 2022-01-29 06:30 | NUR ---
Patient in room CICU 2014. I have received report from MARBIN Atkinson and had the opportunity to ask questions and assume patient care.
[2022-01-29 07:09] LABS: ANISOCYTOSIS 2+; BURR CELLS FEW; PLATELET ESTIMATE DECREASED; TOTAL CELLS COUNTED 100
[2022-01-29] MEDS: pantoprazole 40MG/NS 100ML BAG 100 ML IV SCH ×2 (08:28→19:57)
[2022-01-29] MEDS: venlafaxine 37.5mg tablet OGT SCH ×2 (08:29→19:57)
[2022-01-29] MEDS: methadone 10mg tablet OGT SCH (08:29)
[2022-01-29] MEDS: amiodarone 200mg tablet OGT SCH ×2 (08:29→19:57)
[2022-01-29] MEDS: dexmedetomidine/D5W 100mL 100 ML IV PRN ×4 (10:00→21:25)
--- NOTE | 2022-01-29 11:43 | NUR ---
Patients called updated her on his status, obtained his oncology doc information. Patient sees Dr. Ashraf at [facility]. Was asked by Dr Wylie to find out if the would be ok to transfer the patient to a higher level of care, she is agreeable and will be in this afternoon to see her
[2022-01-29] MEDS: midodrine 5mg tablet PO SCH ×2 (12:01→16:43)
[2022-01-29] MEDS: acetaminophen 325mg/10.15ml oral unit dose solution OGT PRN (17:57)
--- NOTE | 2022-01-29 18:07 | NUR ---
Problems reprioritized. Patient report given, questions answered & plan of care reviewed with Ellen ZAZUETA.
[2022-01-29] MEDS: sennosides/docusate sodium tablet OGT SCH (19:57)
[2022-01-30] VITALS (31 sets, daily range): BP systolic 83–145; BP diastolic 48–73
[2022-01-30] MEDS: mineral oil/petrolatum ophthal oint EACHEYE SCH ×4 (01:18→20:00)
[2022-01-30 02:47] LABS: HEMOGLOBIN 7.8 g/dl (14.0-17.9); LYMPHOCYTES # (AUTO) 0.5 X10'3 (1.1-4.8); MONOCYTES # (AUTO) 0.2 X10'3 (0-0.9); NEUTROPHILS # (AUTO) 0.4 X10'3 (1.8-7.7); WHITE BLOOD COUNT 1.2 X10'3 (4.5-11.0)
[2022-01-30 02:49] LABS: BASOPHILS % (AUTO) 1.6 % (0-1); EOSINOPHILS # (AUTO) 0.1 X10'3 (0-0.9); EOSINOPHILS % (AUTO) 4.8 % (0-6); HEMATOCRIT 24.3 % (42.0-52.0); LYMPHOCYTES % (AUTO) 43.4 % (21-51); MEAN CORPUSCULAR HEMOGLOBIN 29.4 PG (27.0-31.0); MEAN CORPUSCULAR VOLUME 91.9 FL (78-98); MEAN PLATELET VOLUME 9.2 FL (7.4-10.4); MONOCYTES % (AUTO) 18.2 % (2-12); RED BLOOD COUNT 2.64 X10'6 (4.70-6.10); RED CELL DISTRIBUTION WIDTH 18.9 % (11.5-14.5)
[2022-01-30 02:59] LABS: ALANINE AMINOTRANSFERASE 124 U/L (12-78); ALBUMIN 1.2 G/DL (3.4-5.0); ALBUMIN/GLOBULIN RATIO 0.3 (1.1-1.5); ALKALINE PHOSPHATASE 91 IU/L (46-116); ANION GAP 12 (8-16); ASPARTATE AMINO TRANSFERASE 176 U/L (10-37); BILIRUBIN,TOTAL 0.8 MG/DL (0.1-1.0); BLOOD UREA NITROGEN 67 MG/DL (7-18); BUN/CREATININE RATIO 38.5 (5.4-32.0); CALCIUM 7.5 MG/DL (8.5-10.1); CHLORIDE 103 MMOL/L (99-107); CREATININE 1.74 MG/DL (0.60-1.10); GLUCOSE 169 MG/DL (70-104); PHOSPHORUS 6.1 MG/DL (2.3-4.5); PLATELET COUNT 19 X10'3 (140-440); POTASSIUM 4.5 MMOL/L (3.5-5.1); PREALBUMIN 7.8 MG/DL (19-36); SODIUM 134 MMOL/L (135-145); TOTAL CARBON DIOXIDE 18.8 MMOL/L (24-32); TOTAL PROTEIN 4.8 G/DL (6.4-8.2); eGFR 39 ML/MIN
[2022-01-30] MEDS: albuterol 2.5 MG/3 ML nebule NEB SCH ×6 (03:00→23:06)
[2022-01-30 03:37] LABS: ABG BASE EXCESS -10.7 mmol/L (-2.0-2.0); ABG HCO3 17.4 mmol/L (22.0-26.0); ABG OXYGEN SATURATION 93.8 % (94-97); ABG PO2 (T) 77.2 mmHg (75.0-100.0); ALLEN'S TEST POSITIVE; FCOHb 0.1 % (0.0-3.9); FMetHb 0.2 % (0.0-1.5); FO2Hb 93.5 % (94-97); PATIENT TEMPERATURE 36.4; PEEP 5 cm H2O; RESPIRATORY RATE 20 b/min; TIDAL VOLUME 500 mL; TOTAL HEMOGLOBIN 9.1 G/dl (14.0-18.0)
[2022-01-30] MEDS: venlafaxine 37.5mg tablet OGT SCH ×2 (08:00→21:38)
[2022-01-30] MEDS: pantoprazole 40MG/NS 100ML BAG 100 ML IV SCH ×2 (08:00→21:38)
[2022-01-30] MEDS: midodrine 5mg tablet PO SCH ×3 (08:00→16:00)
[2022-01-30] MEDS: methadone 10mg tablet OGT SCH (08:00)
[2022-01-30] MEDS: amiodarone 200mg tablet OGT SCH ×2 (08:00→21:37)
[2022-01-30] MEDS: TBO-filgrastim 300 MCG/0.5 ML inj. SQ SCH (09:05)
[2022-01-30] MEDS: dexmedetomidine/D5W 100mL 100 ML IV PRN ×2 (09:56→17:28)
[2022-01-30] MEDS ORDERED: furosemide 40mg/4ml inj IV ONE (11:25)
[2022-01-30] MEDS: propofol 1000mg/100ml bottle 100 ML IV SCH ×3 (11:42→23:54)
--- NOTE | 2022-01-30 11:50 | NUR ---
Noted pt with a low Zeus of 10. Per RN pt with a skin tear to sacrum. Pt already with increased protein needs r/t intubation. No changes to nutrition recommendations at this time. Will continue to follow. Addendum: 01/30/22 at [address] Amended: Links added.
[2022-01-30] MEDS: sevelamer carbonate 0.8gm powder pkt OGT SCH ×2 (13:00→17:31)
[2022-01-30 17:12] LABS: ABG BASE EXCESS -10.8 mmol/L (-2.0-2.0); ABG HCO3 17.7 mmol/L (22.0-26.0); ABG PCO2 (T) 52.7 mmHg (35.0-48.0); ABG PO2 (T) 75.3 mmHg (75.0-100.0); FCOHb 0.2 % (0.0-3.9); FMetHb 0.4 % (0.0-1.5); FO2Hb 91.4 % (94-97); PEEP 5 cm H2O; RESPIRATORY RATE 20 b/min; TIDAL VOLUME 500 mL
[2022-01-30] MEDS: sennosides/docusate sodium tablet OGT SCH (21:37)
[2022-01-31] VITALS (40 sets, daily range): BP systolic 79–164; BP diastolic 42–96
[2022-01-31] MEDS: mineral oil/petrolatum ophthal oint EACHEYE SCH ×3 (02:00→14:00)
[2022-01-31 02:06] LABS: BASOPHILS % (AUTO) 1.9 % (0-1); EOSINOPHILS % (AUTO) 3.8 % (0-6); HEMATOCRIT 22.3 % (42.0-52.0); HEMOGLOBIN 7.5 g/dl (14.0-17.9); LYMPHOCYTES # (AUTO) 0.3 X10'3 (1.1-4.8); LYMPHOCYTES % (AUTO) 35.1 % (21-51); MEAN CORPUSCULAR HEMOGLOBIN 30.2 PG (27.0-31.0); MEAN CORPUSCULAR HGB CONC 33.5 g/dL (33.0-36.5); MEAN CORPUSCULAR VOLUME 90.3 FL (78-98); MEAN PLATELET VOLUME 10.2 FL (7.4-10.4); MONOCYTES # (AUTO) 0.3 X10'3 (0-0.9); NEUTROPHILS # (AUTO) 0.2 X10'3 (1.8-7.7); NEUTROPHILS % (AUTO) 28.2 % (42-75); RED BLOOD COUNT 2.47 X10'6 (4.70-6.10); RED CELL DISTRIBUTION WIDTH 18.5 % (11.5-14.5)
[2022-01-31 02:23] LABS: ALANINE AMINOTRANSFERASE 244 U/L (12-78); ALBUMIN 1.2 G/DL (3.4-5.0); ALBUMIN/GLOBULIN RATIO 0.3 (1.1-1.5); ALKALINE PHOSPHATASE 106 IU/L (46-116); ANION GAP 14 (8-16); BLOOD UREA NITROGEN 80 MG/DL (7-18); BUN/CREATININE RATIO 38.3 (5.4-32.0); CHLORIDE 99 MMOL/L (99-107); CREATININE 2.09 MG/DL (0.60-1.10); PHOSPHORUS 5.7 MG/DL (2.3-4.5); SODIUM 130 MMOL/L (135-145); TOTAL CARBON DIOXIDE 16.6 MMOL/L (24-32); TOTAL PROTEIN 4.7 G/DL (6.4-8.2); eGFR 32 ML/MIN
[2022-01-31 02:34] LABS: GLUCOSE 154 MG/DL (70-104); MAGNESIUM 1.7 MG/DL (1.5-2.4); POTASSIUM 4.4 MMOL/L (3.5-5.1)
[2022-01-31 02:38] LABS: ASPARTATE AMINO TRANSFERASE 261 U/L (10-37)
[2022-01-31] MEDS: albuterol 2.5 MG/3 ML nebule NEB SCH ×6 (03:10→22:50)
[2022-01-31 03:16] LABS: WHITE BLOOD COUNT 0.9 X10'3 (4.5-11.0)
[2022-01-31 03:17] LABS: PLATELET COUNT 22 X10'3 (140-440)
[2022-01-31 03:21] LABS: ABG BASE EXCESS -11.6 mmol/L (-2.0-2.0); ABG OXYGEN SATURATION 96.3 % (94-97); ABG PCO2 (T) 37.8 mmHg (35.0-48.0); ABG PO2 (T) 102.8 mmHg (75.0-100.0); ALLEN'S TEST POSITIVE; FCOHb 0.1 % (0.0-3.9); FMetHb 0.3 % (0.0-1.5); FO2Hb 95.9 % (94-97); PATIENT TEMPERATURE 37.4; PEEP 5 cm H2O; RESPIRATORY RATE 26 b/min; TIDAL VOLUME 500 mL; TOTAL HEMOGLOBIN 8.3 G/dl (14.0-18.0)
[2022-01-31 03:23] LABS: NUCLEATED RED BLOOD CELLS 1 /100WBC (0-0); TOTAL CELLS COUNTED 50
[2022-01-31 03:27] LABS: ANISOCYTOSIS FEW; BURR CELLS 1+; PLATELET ESTIMATE DECREASED; POLYCHROMASIA FEW; TEAR DROP CELLS 1+
[2022-01-31 03:28] LABS: SMUDGE CELLS 2+
[2022-01-31] MEDS: dexmedetomidine/D5W 100mL 100 ML IV PRN (05:50)
[2022-01-31] MEDS: venlafaxine 37.5mg tablet OGT SCH ×2 (07:44→20:00)
[2022-01-31] MEDS: sevelamer carbonate 0.8gm powder pkt OGT SCH ×3 (07:44→16:12)
[2022-01-31] MEDS: amiodarone 200mg tablet OGT SCH ×2 (07:45→20:00)
[2022-01-31] MEDS: midodrine 5mg tablet PO SCH ×3 (07:45→16:14)
[2022-01-31] MEDS: furosemide 40mg/4ml inj IV SCH ×2 (07:45→20:00)
[2022-01-31] MEDS: propofol 1000mg/100ml bottle 100 ML IV SCH ×3 (07:46→20:21)
[2022-01-31] MEDS: methadone 10mg tablet OGT SCH (08:12)
[2022-01-31] MEDS: pantoprazole 40MG/NS 100ML BAG 100 ML IV SCH ×2 (08:15→22:32)
[2022-01-31] MEDS: TBO-filgrastim 300 MCG/0.5 ML inj. SQ SCH (09:45)
--- NOTE | 2022-01-31 12:44 | NUR ---
Reassessment: Pt remains intubated and tolerating TF at goal rate with GRV WNL. Propofol visualized at bedside to be running at 25 mcg/kg/min (9.885 mL/hr) which provides 261 kcal/day, though Propofol rate likely to fluctuate further per critical care team. IF Propofol rate does not change, recommend changing TF to Vital AF with 53 mL/hr goal rate to optimize nutrition status while on the vent. Pt now receiving routine Phos binder in view of elevated serum Phos. Noted pt hyponatremic at this time, MD agreed with discontinuing water flushes at this time, RN updated EMR. Pt seen by wound care, per report wound to sacrum is a SDTI. LBM 01/29, receiving routine bowel care. Will continue to follow and make recommendations as appropriate. Recommendations: 1. Given propofol at 19.8 mL/hr (523 kcal/day), continuous Vital HP via NGT with 53 mL/hr goal rate to provide 1272 mL total volume/day, 1272 kcal, 111 g protein, and 1063 mL water 2. Monitor Propofol rate and need to adjust TF recs; IF Propofol continues at 9.885 mL/hr (261 kcal/day), change TF to Vital AF at 53 mL/hr to provide 1272 mL total volume/day, 1526 kcal, 95 g protein, and 1032 mL water 3. No additional water flush at this time; monitor serum Na 4. Prealbumin q Thursday/ 5. Daily scaled weights 6. Routine Phos binder per MD 7. Bowel care per rx 8. Advance to regular mechanical soft chop all diet (SB6) as medically indicated following extubation; needs assistance w/ meals per last admit 9. Monitor need for ONS with diet advancement; previously receiving Ensure Enlive TID at [facility] with good acceptance per [facility] RD Addendum: 01/31/22 at [address] Amended: Links added.
[2022-01-31] MEDS ORDERED: filgrastim 300mcg inj SQ SCH (14:36)
[2022-01-31] MEDS ORDERED: albumin (Human) 5% 250ml 250 ML IV ONE (16:02)
[2022-01-31] MEDS ORDERED: NORepinephrine 8mg/ 250ml NS 250 ML IV ONE (17:17)
[2022-01-31 17:46] LABS: ABG BASE EXCESS -18.2 mmol/L (-2.0-2.0); ABG HCO3 12.8 mmol/L (22.0-26.0); ABG OXYGEN SATURATION 56.4 % (94-97); ABG PCO2 (T) 58.1 mmHg (35.0-48.0); ABG PO2 (T) 41.6 mmHg (75.0-100.0); FCOHb 0.2 % (0.0-3.9); FMetHb 0.1 % (0.0-1.5); FO2Hb 56.2 % (94-97); PEEP 5 cm H2O; RESPIRATORY RATE 20 b/min; TIDAL VOLUME 500 mL; TOTAL HEMOGLOBIN 8.2 G/dl (14.0-18.0)
--- NOTE | 2022-01-31 19:04 | NUR ---
Started out shift at 0700 am with Mr. Gomez on a Propofol dose at 25 and precedex at 0.4. Patient's breathing was labored, dysynchronous with the vent and he was displaying "guppy-like" breathing. During critical care rounds Dr. Bacon recommended shutting off sedation and using spontaneous settings on vent to give the patient a chance to breath independently and have more control. Patient was on spontaneous settings from around 1130 am to 1300 pm until kicked back into a rate. Breathing still remained extremely labored. Increased FIO2 gradually throughout shift from 60% to 100%, peep from 5 to 8. Blood gas looked extremely poor. Need to reassess gas after shift change tonight. BP began to steadily decrease around the same time O2 did. Notified MD and he recommended two 5% units of albumin. No improvement in BP, maps in the 50's. Low dose levophed recommended shortly after, currently at 0.15 at the end of my shift. CT of chest showed fluid around lungs, chest tube placed on left side by Dr Bacon. 1200 mls of immediate output after left chest tube placed, in addition to what looked to be a few hundred ml's dumped directly after the incision, but prior to when the tube was inserted. Neurologically, patient has no cough, no gag, sluggish pupils, and is staring unpurposefully at the ceiling with eyeballs going right to left. CT head negative for bleed today. Family was in room for majority of the day. Consent received for chest tube placement and family appeared to understand the procedure.
--- NOTE | 2022-01-31 19:21 | NUR ---
Report handed off to Fatuma Bui.
[2022-01-31] MEDS: fentaNYL/PF 50MCG/1 ML 2ML syringe IV PRN (19:38)
--- NOTE | 2022-01-31 19:45 | NUR ---
s/p chest tube placement abg done. Results called to Dr. Hernandez with orders noted
[2022-01-31 19:54] LABS: ABG BASE EXCESS -18.5 mmol/L (-2.0-2.0); ABG HCO3 11.8 mmol/L (22.0-26.0); ABG OXYGEN SATURATION 73.1 % (94-97); ABG PCO2 (T) 50.1 mmHg (35.0-48.0); ABG PO2 (T) 49.8 mmHg (75.0-100.0); FCOHb 0.3 % (0.0-3.9); FMetHb 0.4 % (0.0-1.5); FO2Hb 72.6 % (94-97); PATIENT TEMPERATURE 37.2; PEEP 8 cm H2O; RESPIRATORY RATE 20 b/min; TIDAL VOLUME 500 mL; TOTAL HEMOGLOBIN 8.3 G/dl (14.0-18.0)
[2022-01-31] MEDS ORDERED: dextrose 50%-water 50ml dispensing syringe IV ONE ×2 (20:53→21:55)
[2022-01-31] MEDS: sennosides/docusate sodium tablet OGT SCH (21:00)
--- NOTE | 2022-01-31 21:00 | NUR ---
O2 sats dropping to 70's while on vent with FiO2 at 100%. Stat page to RT.
--- NOTE | 2022-01-31 21:05 | NUR ---
RT at bedside, manually bagging patient to maintain O2 sat at 80%. Video call to Dr. Hernandez, call to to notify and request she return to hospital.
[2022-01-31 21:12] LABS: LYMPHOCYTES # (AUTO) 0.3 X10'3 (1.1-4.8); RED BLOOD COUNT 2.41 X10'6 (4.70-6.10)
[2022-01-31 21:14] LABS: BASOPHILS % (AUTO) 0.9 % (0-1); EOSINOPHILS % (AUTO) 0.3 % (0-6); HEMATOCRIT 23.1 % (42.0-52.0); HEMOGLOBIN 7.2 g/dl (14.0-17.9); LYMPHOCYTES % (AUTO) 18.8 % (21-51); MEAN CORPUSCULAR HGB CONC 31.3 g/dL (33.0-36.5); MEAN CORPUSCULAR VOLUME 95.8 FL (78-98); MEAN PLATELET VOLUME 9.5 FL (7.4-10.4); MONOCYTES # (AUTO) 0.3 X10'3 (0-0.9); MONOCYTES % (AUTO) 24.7 % (2-12); NEUTROPHILS # (AUTO) 0.7 X10'3 (1.8-7.7); NEUTROPHILS % (AUTO) 55.3 % (42-75); RED CELL DISTRIBUTION WIDTH 19.3 % (11.5-14.5); WHITE BLOOD COUNT 1.3 X10'3 (4.5-11.0)
[2022-01-31 21:19] LABS: PLATELET COUNT 18 X10'3 (140-440)
[2022-01-31] MEDS ORDERED: sodium bicarbonate (8.4%) 1 mEq/ml syringe ONE (21:24)
[2022-01-31 21:35] LABS: ALBUMIN 1.7 G/DL (3.4-5.0); ANION GAP 16 (8-16); BLOOD UREA NITROGEN 95 MG/DL (7-18); BUN/CREATININE RATIO 37.7 (5.4-32.0); CALCIUM 7.7 MG/DL (8.5-10.1); CHLORIDE 101 MMOL/L (99-107); CREATININE 2.52 MG/DL (0.60-1.10); GLUCOSE 53 MG/DL (70-104); MAGNESIUM 2.4 MG/DL (1.5-2.4); PHOSPHORUS 9.3 MG/DL (2.3-4.5); SODIUM 133 MMOL/L (135-145); TOTAL CARBON DIOXIDE 15.8 MMOL/L (24-32); eGFR 25 ML/MIN
[2022-01-31 21:36] LABS: POTASSIUM 6.5 MMOL/L (3.5-5.1)
[2022-01-31] MEDS ORDERED: calcium gluconate inj. 1 GM in normal saline 100ml IV soln 100 ML IV STA (21:51)
[2022-01-31] MEDS ORDERED: insulin regular, human 10 units/0.1 ml syringe IV ONE (21:55)
--- NOTE | 2022-01-31 22:00 | NUR ---
RT remains at bedside manually bagging patient. Several attempts to return pt to ventilator results in decreasing O2 sat to 70s. Dr. Hernandez remains on video conference call and has spoken with regarding goals of care. Orders noted for DNR status. Pt transitioned back to ventilator with O2 sat at 75%. Attempting to wean levophed as tolerated
[2022-01-31 22:04] LABS: ANISOCYTOSIS 2+; NUCLEATED RED BLOOD CELLS 9 /100WBC (0-0); PLATELET ESTIMATE DECREASED; POLYCHROMASIA FEW; TOTAL CELLS COUNTED 100
[2022-01-31 22:05] LABS: BURR CELLS 1+; ELLIPTOCYTES FEW; SMUDGE CELLS FEW
[2022-01-31] MEDS ORDERED: CALCIUM GLUC 1gm/50ml NACL,iso 50 ML IV ONE (22:20)
[2022-02-01] VITALS (23 sets, daily range): BP systolic 88–124; BP diastolic 35–53
[2022-02-01] MEDS ORDERED: dextrose 50%-water 50ml dispensing syringe IV ONE ×2 (01:02→01:05)
[2022-02-01] MEDS ORDERED: Dextrose 10%-water IV solution 1,000 ML IV SCH (01:05)
--- NOTE | 2022-02-01 01:30 | NUR ---
Call in to Dr. Hernandez regarding low blood sugar and orders to give insulin and D50W for elevated potassium level. orders noted.
--- NOTE | 2022-02-01 02:00 | NUR ---
blood sugar drawn via PICC is 119. Per MD orders, pt medicated with insulin and D50W.
[2022-02-01] MEDS: sevelamer carbonate 0.8gm powder pkt OGT SCH ×2 (02:33→09:35)
[2022-02-01] MEDS: albuterol 2.5 MG/3 ML nebule NEB SCH ×4 (03:00→15:59)
[2022-02-01 04:09] LABS: ABG BASE EXCESS -16.9 mmol/L (-2.0-2.0); ABG HCO3 12.7 mmol/L (22.0-26.0); ABG OXYGEN SATURATION 99.1 % (94-97); ABG PCO2 (T) 45.3 mmHg (35.0-48.0); ABG PO2 (T) 235.4 mmHg (75.0-100.0); ALLEN'S TEST POSITIVE; FCOHb 0.9 % (0.0-3.9); FMetHb 0.2 % (0.0-1.5); PEEP 8 cm H2O; RESPIRATORY RATE 28 b/min; TIDAL VOLUME 450 mL; TOTAL HEMOGLOBIN 7.3 G/dl (14.0-18.0)
[2022-02-01] MEDS: methadone 10mg tablet OGT SCH (08:00)
[2022-02-01] MEDS: furosemide 40mg/4ml inj IV SCH (08:00)
[2022-02-01] MEDS: midodrine 5mg tablet PO SCH ×2 (08:00→11:50)
[2022-02-01] MEDS: pantoprazole 40MG/NS 100ML BAG 100 ML IV SCH (08:00)
[2022-02-01] MEDS ORDERED: sodium bicarbonate (8.4%) inj. 150 MEQ in dextrose 5%-water 1,000 ML IV SCH (08:55)
[2022-02-01] MEDS ORDERED: sodium bicarbonate (8.4%) 1 mEq/ml syringe ONE (09:01)
[2022-02-01] MEDS ORDERED: hydrocortisone sod succ/PF 100mg/2ml inj. IV ONE (09:05)
--- NOTE | 2022-02-01 09:17 | NUR ---
NGT to suction as per elysia ANDERSON
[2022-02-01] MEDS: amiodarone 200mg tablet OGT SCH (09:35)
[2022-02-01] MEDS: venlafaxine 37.5mg tablet OGT SCH (09:37)
[2022-02-01 10:09] LABS: BASOPHILS % (AUTO) 0.4 % (0-1); LYMPHOCYTES # (AUTO) 0.2 X10'3 (1.1-4.8); MONOCYTES # (AUTO) 0.3 X10'3 (0-0.9); NEUTROPHILS # (AUTO) 1.4 X10'3 (1.8-7.7); RED CELL DISTRIBUTION WIDTH 19.6 % (11.5-14.5); WHITE BLOOD COUNT 1.9 X10'3 (4.5-11.0)
[2022-02-01 10:10] LABS: EOSINOPHILS % (AUTO) 1.2 % (0-6); LYMPHOCYTES % (AUTO) 9.8 % (21-51); MEAN CORPUSCULAR HEMOGLOBIN 30.8 PG (27.0-31.0); MEAN CORPUSCULAR HGB CONC 31.8 g/dL (33.0-36.5); MEAN CORPUSCULAR VOLUME 96.8 FL (78-98); MEAN PLATELET VOLUME 9.3 FL (7.4-10.4); MONOCYTES % (AUTO) 15.7 % (2-12); NEUTROPHILS % (AUTO) 72.9 % (42-75); RED BLOOD COUNT 1.62 X10'6 (4.70-6.10)
[2022-02-01 10:15] LABS: HEMATOCRIT 15.7 % (42.0-52.0)
[2022-02-01 10:16] LABS: PLATELET COUNT 8 X10'3 (140-440)
[2022-02-01 10:30] LABS: ALBUMIN 0.9 G/DL (3.4-5.0); ALBUMIN/GLOBULIN RATIO 0.5 (1.1-1.5); ALKALINE PHOSPHATASE 93 IU/L (46-116); ANION GAP 19 (8-16); BILIRUBIN,TOTAL 1.6 MG/DL (0.1-1.0); BLOOD UREA NITROGEN 72 MG/DL (7-18); BUN/CREATININE RATIO 38.9 (5.4-32.0); CHLORIDE 114 MMOL/L (99-107); CREATININE 1.85 MG/DL (0.60-1.10); GLUCOSE 99 MG/DL (70-104); MAGNESIUM 1.6 MG/DL (1.5-2.4); PHOSPHORUS 5.9 MG/DL (2.3-4.5); POTASSIUM 3.7 MMOL/L (3.5-5.1); SODIUM 144 MMOL/L (135-145); TOTAL PROTEIN 2.9 G/DL (6.4-8.2); eGFR 36 ML/MIN
[2022-02-01 10:46] LABS: ANISOCYTOSIS 2+; NUCLEATED RED BLOOD CELLS 9 /100WBC (0-0); PLATELET ESTIMATE DECREASED; POLYCHROMASIA FEW; TOTAL CELLS COUNTED 100
[2022-02-01 10:47] LABS: BURR CELLS 1+; SCHISTOCYTES FEW
[2022-02-01 10:54] LABS: ALANINE AMINOTRANSFERASE 2459 U/L (12-78)
[2022-02-01 11:11] LABS: CALCIUM 5.1 MG/DL (8.5-10.1); TOTAL CARBON DIOXIDE 10.8 MMOL/L (24-32)
[2022-02-01 11:12] LABS: ASPARTATE AMINO TRANSFERASE 4559 U/L (10-37)
[2022-02-01] MEDS ORDERED: NORepinephrine 8mg/ 250ml NS 250 ML IV ONE (13:48)
[2022-02-01] MEDS ORDERED: LORazepam 2 mg/ml vial IV PRN (16:40)
[2022-02-01] MEDS ORDERED: morphine 10mg/0.5ml (conc. morphine) oral syringe PO PRN (16:40)
[2022-02-01] MEDS ORDERED: morphine 10mg/ml inj. IV PRN (16:40)
[2022-02-01] MEDS ORDERED: MORPHINE SULFATE/PF 250 MG in normal saline 50ml IV soln 40 ML IV SCH (17:00)
[2022-02-01] MEDS: fentaNYL/PF 50MCG/1 ML 2ML syringe IV PRN (17:08)
--- NOTE | 2022-02-01 18:04 | NUR ---
Family at bedside for patient extubation to comfort care. Pt given comfort meds as per DEC, Patient extubated around 1700. Comfort measures admin, patient passed. Time of charted and MD aware.
--- NOTE | 2022-02-01 19:43 | NUR ---
Post care done. Call to Mei Urias to notify. Call to [facility] to relay time of .
[2022-02-04 14:03] LABS: HEP A AB, IGM Negative (Negative); HEP B CORE AB, TOT Negative (Negative); HEPATITIS C ANTIBODY <0.1 s/co ratio (0.0-0.9)
[2022-02-08 13:48] LABS: OCCULT BLOOD STOOL POSITIVE (Neg)
== END 2022-02-01 20:45 | DRG 207 ==
LOC: ER 06:21 → ED HOLD 08:24 → CICU 2S 14:04
PROVIDERS: ADMIT Internal Medicine Critical Care Medicine; ATTEND Internal Medicine Critical Care Medicine
PROC: 5A1955Z Respiratory Ventilation, Greater than 96 Consecutive Hours (ICD-10-PCS; principal; 2022-01-23)
PROC: 0BH17EZ Insertion of Endotracheal Airway into Trachea, Via Natural or Artificial Opening (ICD-10-PCS; 2022-01-23)
PROC: 02HV33Z Insertion of Infusion Device into Superior Vena Cava, Percutaneous Approach (ICD-10-PCS; 2022-01-23)
PROC: B548ZZA Ultrasonography of Superior Vena Cava, Guidance (ICD-10-PCS; 2022-01-23)
PROC: 30233K1 Transfusion of Nonautologous Frozen Plasma into Peripheral Vein, Percutaneous Approach (ICD-10-PCS; 2022-01-23)
PROC: 30233N1 Transfusion of Nonautologous Red Blood Cells into Peripheral Vein, Percutaneous Approach (ICD-10-PCS; 2022-01-23)
PROC: 0DB68ZX Excision of Stomach, Via Natural or Artificial Opening Endoscopic, Diagnostic (ICD-10-PCS; 2022-01-24)
PROC: 30233R1 Transfusion of Nonautologous Platelets into Peripheral Vein, Percutaneous Approach (ICD-10-PCS; 2022-01-24)
PROC: 06HM33Z Insertion of Infusion Device into Right Femoral Vein, Percutaneous Approach (ICD-10-PCS; 2022-01-24)
PROC: B54BZZA Ultrasonography of Right Lower Extremity Veins, Guidance (ICD-10-PCS; 2022-01-24)
PROC: 0D9670Z Drainage of Stomach with Drainage Device, Via Natural or Artificial Opening (ICD-10-PCS; 2022-01-24)
PROC: 0B9J8ZX Drainage of Left Lower Lung Lobe, Via Natural or Artificial Opening Endoscopic, Diagnostic (ICD-10-PCS; 2022-01-28)
PROC: 0B9G8ZX Drainage of Left Upper Lung Lobe, Via Natural or Artificial Opening Endoscopic, Diagnostic (ICD-10-PCS; 2022-01-28)
DX: J13 Pneumonia due to Streptococcus pneumoniae (principal); G93.41 Metabolic encephalopathy; J96.01 Acute respiratory failure with hypoxia; C95.90 Leukemia, unspecified not having achieved remission; D61.818 Other pancytopenia; J44.0 Chronic obstructive pulmonary disease with (acute) lower respiratory infection; K92.1 Melena; E46 Unspecified protein-calorie malnutrition; Z68.1 Body mass index [BMI] 19.9 or less, adult; F11.13 Opioid abuse with withdrawal; E87.4 Mixed disorder of acid-base balance; E87.1 Hypo-osmolality and hyponatremia; N17.9 Acute kidney failure, unspecified; J44.1 Chronic obstructive pulmonary disease with (acute) exacerbation; K25.9 Gastric ulcer, unspecified as acute or chronic, without hemorrhage or perforation; E78.00 Pure hypercholesterolemia, unspecified; K29.70 Gastritis, unspecified, without bleeding; Z20.822 Contact with and (suspected) exposure to COVID-19; D46.9 Myelodysplastic syndrome, unspecified; E87.5 Hyperkalemia; E87.6 Hypokalemia; Z66 Do not resuscitate; G89.29 Other chronic pain; F41.9 Anxiety disorder, unspecified; E78.5 Hyperlipidemia, unspecified; E83.51 Hypocalcemia; M54.9 Dorsalgia, unspecified; I25.10 Atherosclerotic heart disease of native coronary artery without angina pectoris; I48.91 Unspecified atrial fibrillation; K31.3 Pylorospasm, not elsewhere classified; K72.90 Hepatic failure, unspecified without coma; Z51.5 Encounter for palliative care; Z79.01 Long term (current) use of anticoagulants; Z79.899 Other long term (current) drug therapy; Z80.1 Family history of malignant neoplasm of trachea, bronchus and lung; Z87.01 Personal history of pneumonia (recurrent); Z95.1 Presence of aortocoronary bypass graft; Z88.5 Allergy status to narcotic agent; Z88.8 Allergy status to other drugs, medicaments and biological substances
CPT/HCPCS: 31628; 31645; 36415; 36430; 36569; 36600; 43239; 70450; 71045; 71250; 74018; 76942; 80048; 80053; 82140; 82272; 82803; 82948; 83605; 83721; 83735; 84100; 84134; 84145; 84439; 84443; 85007; 85008; 85018; 85025; 85610; 85730; 86022; 86704; 86709; 86803; 86885; 86900; 86901; 86920; 87040; 87070; 87635; 88108; 88305; 88341; 88342; 93005; 94002; 94003; 94640; 94760; 99291; C9113; G0378; J0282; J0330; J0610; J0692; J0696; J1442; J1720; J1815; J1940; J2020; J2060; J2250; J2274; J2704; J3010; J3370; J3430; J3480; J3490; J7030; J7070; P9016; P9035; P9045; P9059